=== PATIENT | female | born 1995 | race Caucasian/White ===

== ENCOUNTER 2020-12-29 08:10 | Day surgery (SDC) | payer MEDICAID, OTHER ==
[2020-12-29] MEDS ORDERED: Sugammadex Sodium 200 MG/2 ML VIAL ONE (08:29)
[2020-12-29] MEDS ORDERED: Ondansetron 4 MG/2 ML SDV ONE (08:29)
[2020-12-29] MEDS ORDERED: Rocuronium Bromide 50 MG/5 ML Syringe ONE (08:29)
[2020-12-29] MEDS ORDERED: Lidocaine 2% 5 ML SDV ONE (08:29)
[2020-12-29] MEDS ORDERED: fentaNYL 100 MCG/2 ML SDV ONE (08:29)
[2020-12-29] MEDS ORDERED: Midazolam 1 MG/ML 2 ML SDV ONE (08:29)
[2020-12-29] MEDS ORDERED: Propofol 200 MG/20 ML SDV ONE (08:29)
[2020-12-29] MEDS ORDERED: Glycopyrrolate 0.2 MG/ML SDV ONE (08:29)
[2020-12-29] MEDS ORDERED: Ketorolac 30 MG/ML SDV ONE (08:29)
[2020-12-29] MEDS ORDERED: Doxycycline 100 MG Cap PO ONE (08:42)
[2020-12-29] MEDS ORDERED: Sodium Chloride 0.9% 10 ML SDV IV PRN ×2 (08:43→09:25)
[2020-12-29] MEDS ORDERED: Sodium Chloride 0.9% 2.5 ML Syringe FLUSH PRN ×2 (08:43→09:25)
[2020-12-29] MEDS ORDERED: Sodium Chloride 0.9% 10 ML Syringe FLUSH PRN ×2 (08:43→09:25)
[2020-12-29] MEDS ORDERED: Lactated Ringers 1,000 ML IV ONE (08:44)
[2020-12-29] MEDS ORDERED: Acetaminophen 1,000 MG in Premix Bag 1 BAG IV PRN (09:09)
[2020-12-29] MEDS ORDERED: fentaNYL 100 MCG/2 ML SDV IVPUSH PRN (09:09)
--- NOTE | 2020-12-29 09:10 | PCM.PREANE ---
Preanesthetic Assessment - Anesthesia/Transfusion/Family Hx Anesthesia History: No Prior Anesthesia Family History of Anesthesia Reaction: No Transfusion History: No Prior Transfusion(s) - Physical Assessment NPO Status Date: 12/29/20 NPO Status Time: 00:05 Height: 1.63 m Weight: 111.13 kg ASA Class: 2 - Allergies Allergies/Adverse Reactions: Allergies Allergy/AdvReac Type Severity Reaction Status Date / Time No Known Allergies Allergy Verified 12/29/20 08:40 - Acknowledgements Anesthesia Type Planned: General Anesthesia Pt an Appropriate Candidate for the Planned Anesthesia: Yes Alternatives and Risks of Anesthesia Discussed w Pt/Guardian: Yes Pt/Guardian Understands and Agrees with Anesthesia Plan: Yes PreAnesthesia Questionnaire - SUBSTANCE USE Tobacco Use Within Last Twelve Months: Cigars Second Hand Smoke Exposure: Yes Recreational Drug Use History: Yes Recreational Drug Type: Reports: Other (see below) - CURRENT (IN HOUSE) MEDS Current Meds: Current Medications Lactated Ringer's (Ringers, Lactated) 1,000 mls @ 150 mls/hr IV ASDIRECTED ONE Stop: 12/29/20 15:23 Sodium Chloride (Sodium Chloride 0.9% 10 Ml Syringe) 10 ml FLUSH ASDIRECTED PRN PRN Reason: Keep Vein Open Sodium Chloride (Sodium Chloride 0.9% 2.5 Ml Syringe) 2.5 ml FLUSH ASDIRECTED PRN PRN Reason: Keep Vein Open Sodium Chloride (Sodium Chloride 0.9% 10 Ml Sdv) 10 ml IV ASDIRECTED PRN PRN Reason: IV Use Discontinued Medications Doxycycline Hyclate (Doxycycline 100 Mg Cap) 200 mg PO ONETIME ONE Stop: 12/29/20 08:43 Fentanyl (Fentanyl 100 Mcg/2 Ml Sdv) Confirm Administered Dose 100 mcg .ROUTE .STK-MED ONE Stop: 12/29/20 08:30 Glycopyrrolate (Glycopyrrolate 0.2 Mg/Ml Sdv) Confirm Administered Dose 0.2 mg .ROUTE .STK-MED ONE Stop: 12/29/20 08:30 Ketorolac Tromethamine (Ketorolac 30 Mg/Ml Sdv) Confirm Administered Dose 30 mg .ROUTE .STK-MED ONE Stop: 12/29/20 08:30 Lidocaine (Lidocaine 2% 5 Ml Sdv) Confirm Administered Dose 5 ml .ROUTE .STK-MED ONE Stop: 12/29/20 08:30 Midazolam HCl (Midazolam 1 Mg/Ml 2 Ml Sdv) Confirm Administered Dose 2 mg .ROUTE .STK-MED ONE Stop: 12/29/20 08:30 Ondansetron HCl (Ondansetron 4 Mg/2 Ml Sdv) Confirm Administered Dose 4 mg .ROUTE .STK-MED ONE Stop: 12/29/20 08:30 Propofol (Propofol 200 Mg/20 Ml Sdv) Confirm Administered Dose 200 mg .ROUTE .STConvertro-MED ONE Stop: 12/29/20 08:30 Rocuronium [place] (Rocuronium [place] 50 Mg/5 Ml Syringe) Confirm Administered Dose 50 mg .ROUTE .STK-MED ONE Stop: 12/29/20 08:30 Sugammadex Sodium (Sugammadex Sodium 200 Mg/2 Ml Vial) Confirm Administered Dose 200 mg .ROUTE .STConvertro-MED ONE Stop: 12/29/20 08:30
[2020-12-29] MEDS ORDERED: Doxycycline 100 MG in Sodium Chloride 0.9% 100 ML IV ONE ×2 (09:59→10:15)
[2020-12-29] MEDS ORDERED: Ondansetron 4 MG/2 ML SDV IVPUSH ONE (10:07)
[2020-12-29] MEDS ORDERED: Misoprostol 200 MCG Tab ONE (11:58)
--- NOTE | 2020-12-29 12:32 | PCM.OPNOTE ---
- General Post-Op/Procedure Note Date of Surgery/Procedure: 12/29/20 Operative Procedure(s): Ultrasound guided Suction Dilatation and curettage Findings: 8 week sized anteverted uterus USS guided suction currettage USS showed empty uterine cavity Pre Op Diagnosis: 25yo @ ?? 9weeks with Missed Post-Op Diagnosis: same Anesthesia Technique: General ET Tube Primary Surgeon: Froilan Mckinney Anesthesia Provider: Jayant Moore Pathology: Product of conception for chromosomal microarray Fluid Replacement, Intraop: 800 Output, Urine Amount: 100 EBL in mLs: 200 Complications: None Condition: Good
[2020-12-29] MEDS ORDERED: Morphine 4 MG/ML Syringe IVPUSH PRN (12:35)
[2020-12-29] MEDS ORDERED: Ondansetron 4 MG/2 ML SDV IVPUSH PRN (12:35)
[2020-12-29] MEDS ORDERED: Acetaminophen/oxyCODONE 325-5 MG Tab PO PRN ×2 (12:35)
[2020-12-29] MEDS ORDERED: Ketorolac 30 MG/ML SDV IVPUSH ONE (12:35)
[2020-12-29] MEDS ORDERED: Promethazine 25 MG/ML SDV IM PRN (12:35)
--- NOTE | 2020-12-29 12:44 | PCM.POSTAN ---
POST ANESTHESIA ASSESSMENT - MENTAL STATUS Mental Status: Alert - VITAL SIGNS Vital Signs: Last Vital Signs Temp 37.1 C 12/29/20 12:09 Pulse 88 12/29/20 12:24 Resp 13 12/29/20 12:24 BP 108/48 L 12/29/20 12:24 Pulse Ox 97 12/29/20 12:24 - RESPIRATORY Respiratory Status: Respiratory Rate WNL - CARDIOVASCULAR CV Status: Pulse Rate WNL - GASTROINTESTINAL GI Status: No Symptoms - POST OP HYDRATION Hydration Status: Adequate & Stable
--- NOTE | 2020-12-29 13:12 | PCM48HPAN ---
Post Anesthesia Note - EVALUATION WITHIN 48HRS OF ANESTHETIC Vital Signs in Normal Range: Yes Patient Participated in Evaluation: Yes Respiratory Function Stable: Yes Airway Patent: Yes Cardiovascular Function Stable: Yes Hydration Status Stable: Yes Pain Control Satisfactory: Yes Nausea and Vomiting Control Satisfactory: Yes Mental Status Recovered: Yes Vital Signs: Last Vital Signs Temp 36.9 C 12/29/20 12:40 Pulse 78 12/29/20 12:40 Resp 14 12/29/20 12:40 BP 107/64 12/29/20 12:40 Pulse Ox 98 12/29/20 12:40
[2020-12-29] MEDS ORDERED: Ketorolac 30 MG/ML SDV IVPUSH PRN (15:00)
--- NOTE | 2020-12-30 15:41 | OR ---
SURGEON: JOSIAH FELIZ DATE OF PROCEDURE: 12/29/2020 PROCEDURE: Suction dilatation and curettage, ultrasound guided. PREOPERATIVE DIAGNOSES: 25-year-old G2, P1-0-1-1 at 9 weeks. Suspect 9 weeks' with missed . POSTOPERATIVE DIAGNOSES: 25-year-old G2, P1-0-1-1 at 9 weeks. Suspect 9 weeks' with missed . ESTIMATED BLOOD LOSS: 100. IV FLUID: 800. ANESTHESIA: General. COMPLICATION: None. NOTES AND FINDINGS: A normal-sized anteverted uterus, and ultrasound showed empty uterine cavity. BRIEF HISTORY ABOUT THE PATIENT: She is a 25-year-old. She is G2, P0-0-1-0, who was about 9 weeks' , Rh negative, who was seen like 2 weeks ago, complaining of spotting. At this point, she had an ultrasound done that showed no cardiac activity in the fetus. She received RhoGAM in the emergency room prior to presentation at the clinic. The patient within the couple of weeks was still complaining of spotting, but had no heavy bleeding. She came for a followup appointment. An ultrasound was done and fetus was noted to have no cardiac activity, so diagnosis of missed was made. She was given the option of conservative management with waiting for about 1 week for spontaneous miscarriage, medical or surgical. The patient opted for surgical management with chromosome analysis . DESCRIPTION OF PROCEDURE: The patient was taken to the operating room, where general anesthesia was performed without difficulty. She was prepared and draped in the dorsal lithotomy position with Jerod stirrups. A speculum was used to expose the cervix, and Allis clamp was used to grasp the anterior lip of the cervix. The cervix was then dilated to accommodate the 8 mm curved curette. Under ultrasound guidance, suction was done in clockwise motion to get the products of conception from the uterine cavity. Then, a sharp curette size 3 was used to curette the wall of the uterus gently. Again, the suction was then replaced back in without any difficulty and the additional products were removed. The patient had some bleeding, so uterine massaging was done, and 200 mcg of Cytotec was put in the rectum after which the patient was hemostatic. Allis was removed. Speculum was removed. The patient tolerated the procedure well and sent home in normal condition. Prior to procedure, the patient was given doxycycline preop. HANK ARROYO /[id number] MTDD
--- NOTE | 2021-01-01 12:24 | US ---
EXAM DATE: 12/29/20 PATIENT'S AGE: 25 Patient: DAWOOD LYN Facility: [facility] . Site : [id number] Study: US-OB Pelvis pelvic-12/29/2020 12:18:53 PM Ordering Physician: Hank Mcgovern Final Report: INDICATION: D&C procedure. TECHNIQUE: Intraoperative ultrasound was provided for the procedure. COMPARISON: None. IMPRESSION: Limited images were obtained. Please see the procedure report for further discussion. Dictated by Reinaldo Walker MD @ 01/01/2021 10:40:50 AM Signed by: Reinaldo Walker MD @01/01/2021 10:40:50 AM (Electronic Signature) Report Signed by Proxy. HERSON
== END 2020-12-29 13:50 | disposition home or self-care (01) ==
LOC: MW.SDS 08:10 → MW.OB 08:27 → MW.SDS 13:50
PROVIDERS: ATTEND Obstetrics & Gynecology
DX: O02.1 Missed abortion (principal); E03.9 Hypothyroidism, unspecified; I10 Essential (primary) hypertension; G89.29 Other chronic pain; J45.909 Unspecified asthma, uncomplicated; F34.1 Dysthymic disorder; F17.210 Nicotine dependence, cigarettes, uncomplicated; Z01.812 Encounter for preprocedural laboratory examination; Z20.822 Contact with and (suspected) exposure to COVID-19; Z79.899 Other long term (current) drug therapy
CPT/HCPCS: 36415; 59820; 76998; 85027; 86850; 86870; 86900; 86901; 87635; 88233; A9270; J2250; J2405; J2704; J3010; J3490; J7120; 01965; J1885; U0002